=== PATIENT | male | born 1950 | race Caucasian/White ===

== ENCOUNTER 2020-04-28 11:25 | Outpatient (CLI) | payer MEDICARE ==
[~2020-04-28 11:25] MED LIST: Iopamidol-370 76% 500 ML 1 ML ONE
[2020-04-28 15:39] LABS: Estimated GFR-MDRD - POC Greater than 90
--- NOTE | 2020-04-28 16:40 | CT ---
CTA OF THE NECK UTILIZING IV CONTRAST WITH 3D REFORMATTED IMAGING: Date: 04/28/2020 HISTORY: History of hemodynamically significant internal carotid stenosis. COMPARISON: Carotid ultrasound dated 09/24/2019 from [facility]. FINDINGS: The right subclavian artery is widely patent. The right common carotid artery and brachiocephalic art eries are widely patent. At the level of the right carotid bulb, there is dense calcified atherosclerotic plaque inducing at l east 50% luminal caliber narrowing of the carotid bulb. There is extension of the calcified atheroscl erotic plaque into the proximal internal carotid artery inducing 85% luminal caliber narrowing involv ing the proximal to mid right ICA on image 79 of series 3. There is moderate 50% luminal caliber narr owing involving the mid right ECA, particularly on image 81 of series 3. The remaining cervical right ICA is widely patent. The left common carotid artery origin is widely patent. There is partially calcified atherosclerotic plaque involving the origin of the left ICA inducing 40% luminal caliber narrowing. No hemodynamicall y significant stenosis is seen for the remaining course of the left ICA. Left external carotid artery is widely patent. The left subclavian artery is widely patent. The left vertebral artery is difficult to fully visualiz e in its proximal segments due to some venous contamination and the soft tissues; however, visualized segments of the cervical left vertebral artery is widely patent. Visualized intradural course appear s widely patent. The visualized basilar is widely patent. There is origin of the left ORACLE APPLICATIONS ANALYST. Righ t ORACLE APPLICATIONS ANALYST, visualized MCAs, and intracranial course of the ICAs appear patent. The right vertebral artery demonstrates some mild vascular calcification along its proximal segment, but appears to be widely patent throughout its visualized course. Visualized aspects of the intracranial contents appear within normal limits. Visualized cabinet maker sp reji appears within normal limits. Aerodigestive tract appears within normal limits. The lung apices d emonstrate scattered emphysema. No pathologically enlarged lymph node is evident. The parotid, subman dibular, and thyroid gland appear within normal limits. There is scattered degenerative and osteoarthritic change of the visualized cervical spine. There is partial visualization of a prior CABG. IMPRESSION: 1. 85% luminal caliber narrowing involving the proximal to mid right ICA. 2. 40% luminal caliber narrowing involving the origin of the left ICA. 3. No hemodynamically significant stenosis of the vertebral arteries. 4. Moderate narrowing involving the mid right ECA. POS: [facility]
== END 2020-04-28 11:26 | disposition home or self-care (01) ==
LOC: BICCT 11:25
PROVIDERS: ATTEND Thoracic Surgery (Cardiothoracic Vascular Surgery)
DX: I65.23 Occlusion and stenosis of bilateral carotid arteries (principal)
CPT/HCPCS: 70498; 82565; Q9967

== ENCOUNTER 2020-07-17 07:43 | Outpatient (CLI) | payer MEDICARE ==
[2020-07-17 14:33] LABS: Hemoglobin 13.8 g/dL (14.0-18.0); Mean Corpuscular HGB CONC 32.9 G/DL (32.0-36.0); Mean Corpuscular Hemoglobin 29.6 PG (27.0-33.0); Mean Corpuscular Volume 89.9 fl (80.0-100.0); Mean Platelet Volume 11.8 fl (7.4-10.4); Platelet Count 240 10x3/uL (130-400); RBC Distribution Width 13.2 % (11.5-14.5); Red Blood Cell (RBC) Count 4.67 10x6/uL (4.40-5.80); White Blood Cell (WBC) Count 11.1 10x3/uL (4.5-11.0)
[2020-07-17 14:36] LABS: Anion Gap 14 mmol/L (10-20); BUN (Urea Nitrogen) 27 mg/dL (8.4-25.7); Calc. Creatinine Clearance 0 mL/min (70-130); Calcium 10.4 mg/dL (7.8-10.44); Carbon Dioxide 27 mmol/L (23-31); Chloride 101 mmol/L (98-107); Glucose 117 mg/dL (80-115); Sodium 137 mmol/L (136-145)
[2020-07-18 02:57] LABS: SARS-CoV-2 MS2 Positive; SARS-CoV-2 N Gene Negative; SARS-CoV-2 S Gene Negative; SARS-CoV-2 by NAA Not Detected (NotDetected); SARS-CoV-2 orf1ab Negative
== END 2020-07-17 07:44 | disposition home or self-care (01) ==
LOC: LABBT 07:43
PROVIDERS: ATTEND Thoracic Surgery (Cardiothoracic Vascular Surgery)
DX: Z01.812 Encounter for preprocedural laboratory examination (principal); I65.29 Occlusion and stenosis of unspecified carotid artery; Z20.822 Contact with and (suspected) exposure to COVID-19
CPT/HCPCS: 80048; 85027; U0003; U0005; 87635

== ENCOUNTER 2020-08-08 13:30 | Inpatient (IN) | payer MEDICARE ==
[2020-08-12 10:21] VITALS: BMI 32.5
[2020-08-13] MEDS ORDERED: ePHEDrine 50 MG/ML VIAL ONE (09:07)
[2020-08-13] MEDS ORDERED: Lidocaine 1% PF 5 ML VIAL ONE (09:07)
[2020-08-13] MEDS ORDERED: Rocuronium Bromide 10 MG/ML (10ML VIAL) ONE (09:07)
[2020-08-13] MEDS ORDERED: PROPOFOL 200 MG/20 ML VIAL ONE (09:07)
[2020-08-13] MEDS ORDERED: Dexamethasone 20 MG/5 ML VIAL ONE (09:07)
[2020-08-13] MEDS ORDERED: Ondansetron PF 4 MG/2 ML Vial ONE (09:07)
[2020-08-13] MEDS ORDERED: Metoprolol Tartrate 5 MG/5 ML VIAL ONE (09:07)
[2020-08-13] MEDS ORDERED: Protamine Sulfate 50 MG/5 ML VIAL ONE (09:42)
[2020-08-13] MEDS ORDERED: Heparin 5,000 UNITS/ML VIAL ONE (09:42)
[2020-08-13] MEDS ORDERED: Fentanyl 100 MCG/2 ML VIAL ONE ×2 (09:52→14:48)
[2020-08-13] MEDS ORDERED: Midazolam HCl 2 mg/2 ml Vial ONE (10:14)
[2020-08-13] MEDS ORDERED: Ondansetron ODT 4 MG TAB ONE (10:14)
--- NOTE | 2020-08-13 12:04 | HP ---
HISTORY OF PRESENT ILLNESS: This is a pleasant gentleman, who was found to have a greater than 70% right internal carotid artery stenosis on routine carotid ultrasound. The patient had a CT scan confirming an 85% stenosis of a low-lying carotid bifurcation, internal carotid artery. PAST MEDICAL HISTORY: Includes previous coronary artery bypass grafting in 2014 with subsequent negative stress test and a cardiac echo showing preserved left ventricular function. He has a history of diabetes mellitus, hypertension, and dyslipidemia. MEDICATIONS: Include: 1. Losartan 50 b.i.d. 2. Atorvastatin 40 a day. 3. Hydrochlorothiazide 25 a day. 4. Aspirin 81 a day. 5. Amlodipine 5 a day. 6. Glipizide XL 10 a day. 7. Metformin 1000 b.i.d. ALLERGIES: NO KNOWN ALLERGIES. SOCIAL HISTORY: The patient is . He has not smoked in the past year. PHYSICAL EXAMINATION: GENERAL: Alert, cooperative gentleman. Height 6 feet, weight 248. NECK: Bilateral radiated murmurs or bruits, left greater than right. CARDIAC: Regular rate and rhythm on cardiac exam with a soft systolic murmur. LUNGS: Clear to auscultation. EXTREMITIES: Without edema. NEUROLOGIC: Grossly intact. PLAN: At this time, is for right carotid endarterectomy and informed consent has been obtained. Job ID: [id number] MTDD
[2020-08-13] MEDS ORDERED: Fentanyl 100 MCG/2 ML VIAL SLOW IVP PRN ×2 (14:18)
[2020-08-13] MEDS ORDERED: Insulin Regular 300 UNITS/3 ML VIAL SC PRN (14:18)
[2020-08-13] MEDS ORDERED: Promethazine HCl 25 MG/ML VIAL IM PRN ×2 (14:18→14:52)
[2020-08-13] MEDS ORDERED: Nitroglycerin 50 MG/250 ML BOT 250 ML IVPB PRN (14:18)
[2020-08-13] MEDS ORDERED: HYDROcodone/Acetaminophen 5/325 mg Tablet PO PRN ×2 (14:18)
[2020-08-13] MEDS ORDERED: Acetaminophen 325 MG TAB PO PRN (14:18)
[2020-08-13] MEDS ORDERED: Ondansetron PF 4 MG/2 ML Vial IVP PRN (14:18)
[2020-08-13] MEDS ORDERED: Norepinephrine 8 MG/0.9% NS 250 ML IVPB PRN (14:18)
[2020-08-13] MEDS ORDERED: Ondansetron HCl/PF 4 MG/2 ML Vial IVP PRN (14:52)
[2020-08-13] MEDS ORDERED: Promethazine HCl 25 MG/ML VIAL SLOW IVP PRN (14:52)
[2020-08-13] MEDS: Sodium Chloride 0.9% 1,000 ML IV SCH (16:22)
[2020-08-13] MEDS ORDERED: Sodium Chloride For Inhalation 0.9% 3 ML NEB ONE (16:36)
[2020-08-13] MEDS ORDERED: Sodium Chloride 0.9% 10 ML ONE (16:37)
[2020-08-13] MEDS: CEFAZOLIN 2 GM in Premix Bag 1 BAG IVPB SCH (18:51)
[2020-08-14] MEDS: Sodium Chloride 0.9% 1,000 ML IV SCH (00:43)
[2020-08-14] MEDS: CEFAZOLIN 2 GM in Premix Bag 1 BAG IVPB SCH (01:37)
--- NOTE | 2020-08-14 06:49 | PDOC.CPN ---
- Subjective Date: 08/14/20 Time: 06:46 Interval history: Patient is post-operative day 1 for right carotid endarterectomy. Patient reports feeling well with no pain. Denies nausea, vomititng, chest pain, shortness of breath, and abdominal pain. Patient's pain is controlled on hydrocodone. Patient's right carotid was not covered, but looked clean and dry. Patient had urinated and had a bowel movement yesterday. Patient is eager to be discharged. - Review of Systems Respiratory: denies: shortness of breath Cardiovascular: denies: chest pain Gastrointestinal: denies: nausea, vomiting, abd pain - Objective Allergies/Adverse Reactions: Allergies Allergy/AdvReac Type Severity Reaction Status Date / Time No Known Allergies Allergy Verified 08/12/20 10:18 Visit Medications: Current Medications Acetaminophen (Acetaminophen 325 Mg Tab) 650 mg PO Q4H PRN PRN Reason: Fever > 101 or headache Hydrocodone Bitart/Acetaminophen (Hydrocodone/Acetaminophen 5/325 Mg Tablet) 1 tab PO Q4H PRN PRN Reason: Mild Pain (1-3) Hydrocodone Bitart/Acetaminophen (Hydrocodone/Acetaminophen 5/325 Mg Tablet) 2 tab PO Q4H PRN PRN Reason: Moderate Pain (4-6) Albuterol/Ipratropium (Ipratropium/Albuterol Sulfate 3 Ml Neb) 3 ml NEB Q6H PRN PRN Reason: SOB Amlodipine Besylate (Amlodipine 5 Mg Tab) 5 mg PO DAILY [facility] Aspirin (Aspirin Chewable 81 Mg Tab) 81 mg PO QAM [facility] Atorvastatin Calcium (Atorvastatin Calcium 40 Mg Tab) 80 mg PO DAILY [facility] Cyanocobalamin (Cyanocobalamin (Vitamin B-12) 1,000 Mcg Tab) 1,000 mcg PO DAILY [facility] Fenofibrate (Fenofibrate Nanocrystallized 145 Mg Tab) 145 mg PO DAILY [facility] Fentanyl (Fentanyl 100 Mcg/2 Ml Vial) 25 mcg SLOW IVP Q4H PRN PRN Reason: Moderate Pain (4-6) Last Admin: 08/14/20 03:51 Dose: 25 mcg Documented by: Fentanyl (Fentanyl 100 Mcg/2 Ml Vial) 50 mcg SLOW IVP Q4H PRN PRN Reason: Severe Pain (7-10) Glipizide (Glipizide 10 Mg Tab) 10 mg PO DAILY [facility] Hydrochlorothiazide (Hydrochlorothiazide 25 Mg Tab) 25 mg PO DAILY [facility] Sodium Chloride (Normal Saline 0.9%) 1,000 mls @ 100 mls/hr IV .Q10H SAMEER Last Admin: 08/14/20 00:43 Dose: Not Given Documented by: Cefazolin Sodium/Dextrose 2 gm (/ Device) 50 mls @ 100 mls/hr IVPB 0200,1000,1800 SAMEER Stop: 08/14/20 10:29 Last Admin: 08/14/20 01:37 Dose: 50 mls Documented by: Nitroglycerin/Dextrose (Nitroglycerin 50 Mg/250 Ml Bot) 250 mls @ 0 mls/hr IVPB PRN PRN; Protocol PRN Reason: To Keep SBP < 140 mmHG Norepinephrine Bitartrate (Levophed) 250 mls @ 0 mls/hr IVPB PRN PRN; Protocol PRN Reason: To Keep SBP > 90 mmHG Insulin Human Regular (Insulin Regular 300 Units/3 Ml Vial) 0 units SC .BEDTIME SLIDING SC PRN PRN Reason: Bedtime Correctional Scale Last Admin: 08/13/20 20:54 Dose: 2 unit Documented by: Ondansetron HCl (Ondansetron Pf 4 Mg/2 Ml Vial) 4 mg IVP Q6H PRN PRN Reason: Nausea/Vomiting Pioglitazone HCl (Pioglitazone Hcl 15 Mg Tab) 15 mg PO DAILY [facility] Promethazine HCl (Promethazine Hcl 25 Mg/Ml Vial) 6.25 mg IM Q4H PRN PRN Reason: Nausea/Vomiting Vital Signs & Weight: Vital Signs Temp Pulse Ox 08/14/20 04:00 97.2 F L 08/14/20 00:00 97.7 F 08/13/20 20:00 100 Weight 108.862 kg - Physical Exam General: alert & oriented x3, appears well, no apparent distress Neck: no bruit Cardiac: regular rate and rhythm, no murmur Lungs: clear to auscultation, normal breath sounds Skin: clear (over chest and abdomen) - Problem (1) Surgery follow-up Code(s): Z09 - ENCNTR FOR F/U EXAM AFT TRTMT FOR COND OTH THAN SOUTH ALEJANDRAPLM Assessment and Plan: Plan to get patient out of bed and walk around. Will continue to monitor progress.
--- NOTE | 2020-08-14 07:19 | OP ---
DATE OF PROCEDURE: 08/13/2020 PREOPERATIVE DIAGNOSIS: Critical right carotid stenosis. POSTOPERATIVE DIAGNOSIS: Critical right carotid stenosis. PROCEDURE PERFORMED: Right carotid endarterectomy with bovine patch angioplasty. ANESTHESIA: General. ESTIMATED BLOOD LOSS: 100. DESCRIPTION OF PROCEDURE: After adequate anesthesia had been obtained, ultrasound was used to localize the carotid bulb and the patient was then prepped and draped. Incision was made in the neck and eventually extended cranially. Common carotid artery was isolated and dissection was carried up, isolating the external carotid artery. The internal carotid artery was posterior and had rather dense reaction around the vessel. Hypoglossal nerve was not identified and the facial vein was ligated, clipped, and divided. The internal carotid artery was diseased for an extended distance distally, and ultimately, the internal carotid artery was also isolated quite high in the neck. After 7500 units of heparin with a good ACT level, clamps were applied and arteriotomy was performed. This in itself was difficult because there was a very small lumen. It was difficult to extend the incision cranially, particularly in the high internal carotid artery where there was heavy calcification and essentially minimal lumen. Ultimately, after a prolonged period of no shunt, a 10-Yoruba shunt was able to be safely inserted. Endarterectomy was then performed and it was quite densely adherent to the distal internal carotid artery, but eventually mobilized. The area was thoroughly irrigated and any loose debris removed and a bovine patch was then used to close the arteriotomy. Prior to completing the suture line, the shunt was removed and flow restored up the external and then internal carotid artery. Protamine was given to partially reverse the heparin, and after obtaining good hemostasis, the wound was closed in layers. The patient is to be taken to the recovery room in guarded condition. Job ID: [id number]
[2020-08-14 07:51] VITALS: BP 158/48
[2020-08-14] MEDS ORDERED: Amlodipine 5 MG TAB PO SCH (09:00)
[2020-08-14] MEDS ORDERED: Fenofibrate Nanocrystallized 145 MG TAB PO SCH (09:00)
[2020-08-14] MEDS ORDERED: Atorvastatin Calcium 40 MG TAB PO SCH (09:00)
[2020-08-14] MEDS ORDERED: Cyanocobalamin (Vitamin B-12) 1,000 MCG TAB PO SCH (09:00)
[2020-08-14] MEDS ORDERED: glipiZIDE 10 MG TAB PO SCH (09:00)
[2020-08-14] MEDS ORDERED: Pioglitazone HCl 15 MG TAB PO SCH (09:00)
[2020-08-14] MEDS ORDERED: Hydrochlorothiazide 25 MG TAB PO SCH (09:00)
[2020-08-14] MEDS ORDERED: Aspirin Chewable 81 MG TAB PO SCH (09:00)
[2020-08-14 09:03] VITALS: TEMP 97.8
--- NOTE | 2020-08-15 06:12 | DIS ---
DATE OF ADMISSION: 08/13/2020 DATE OF DISCHARGE: 08/14/2020 The patient was admitted for a right carotid endarterectomy which was performed. Technically, it was more difficult than anticipated due to the extensive nature of the plaque and extending cranial quite a bit higher than anticipated for a low carotid bifurcation. Postoperatively, he was neurologically intact. He was voiding well. His neck had minimal swelling and he will be discharged to resume his home medicines today. Job ID: [id number]
== END 2020-08-14 10:00 | disposition home or self-care (01) | DRG 39 ==
LOC: SURG A 08-13 08:44 → IMCU/EMU 08-13 17:33
PROVIDERS: ADMIT Thoracic Surgery (Cardiothoracic Vascular Surgery); ATTEND Thoracic Surgery (Cardiothoracic Vascular Surgery)
PROC: 03CK0ZZ Extirpation of Matter from Right Internal Carotid Artery, Open Approach (ICD-10-PCS; principal; 2020-08-13)
PROC: 03UK0JZ Supplement Right Internal Carotid Artery with Synthetic Substitute, Open Approach (ICD-10-PCS; 2020-08-13)
DX: I65.21 Occlusion and stenosis of right carotid artery (principal); Z20.822 Contact with and (suspected) exposure to COVID-19; I25.10 Atherosclerotic heart disease of native coronary artery without angina pectoris; I10 Essential (primary) hypertension; E11.9 Type 2 diabetes mellitus without complications; E78.5 Hyperlipidemia, unspecified; Z79.899 Other long term (current) drug therapy; Z95.1 Presence of aortocoronary bypass graft; Z79.84 Long term (current) use of oral hypoglycemic drugs; Z79.82 Long term (current) use of aspirin
CPT/HCPCS: 36416; J0690; J1100; J1642; J1644; J1815; J2250; J2405; J2704; J2720; J3010; J3490; Q0162